=== PATIENT | female | born 1965 | race Caucasian/White ===

== ENCOUNTER 2022-07-22 15:27 | Outpatient (CLI) | payer BC, SELFPAY ==
--- NOTE | ~2022-07-22 | XR_ITS ---
XR lumbar spine min 4V DATE: 07/22/2022 16:03 INDICATION: Spondylosis without myelopathy or radiculopathy TECHNIQUE: Standing AP, lateral and flexion and extension lateral views COMPARISON: 07/22/2022 FINDINGS: Status post anterior, interbody and posterior surgical spinal fusion at L5-S1. There is moderate degenerative disc disease at L4-5 and mild degenerative disease at the remaining rubens mbar interspaces. No fracture or bone destruction is evident. Included lower thoracic and lower lumbar pedicles appear intact. No lumbar instability is noted on flexion or extension. The sacroiliac joints and pubic symphysis are intact. Status post cholecystectomy. IMPRESSION: Status post anterior, interbody and posterior spinal fusion at L5-S1 Mild to moderate degenerative disease Reviewed, dictated and finalized at location A. MINE CUTTING MACHINE OPERATOR IMPRESSION: Status post anterior, interbody and posterior spinal fusion at L5-S 1 Mild to moderate degenerative disease
--- NOTE | ~2022-07-22 | CT_ITS ---
EXAMINATION: CT lumbar spine wo con DATE: 07/22/2022 15:45 INDICATION: Lumbar spondylosis. TECHNIQUE: Computed tomography (CT) of the lumbar spine was performed without intravenous contrast. A utomated exposure control and iterative reconstruction technique were employed. The dose-length produ ct was 1268.33 mGy-cm. COMPARISON: Lumbar spine radiographs 07/22/2022 FINDINGS: There is a small sliding hiatal hernia. There is 6 degrees levocurvature of lumbar spine. T here is a transitional segment at lumbosacral junction that is designated L5. There is mild chronic a nterior wedging of T10 vertebral body. There are changes of anterior fusion procedure at L4-L5 with i nterbody device and anterior plate and screws. There are changes of posterior fusion procedure at L4- L5 with pedicle screws. There is mildly decreased disc height at L2-L3 and moderately decreased disc height at L3-L4. The following disc levels are specifically discussed: L1-L2: The disc is mildly bulging. There is mild bilateral facet joint osteoarthritis. There is mild bilateral neural foraminal stenosis. There is no central canal stenosis. L2-L3: The disc is bulging. There is moderate right and mild left facet joint osteoarthritis. There i s mild bilateral neural foraminal stenosis. There is mild central canal stenosis. L3-L4: The disc is bulging. There is severe bilateral facet joint osteoarthritis. There is moderate b ilateral neural foraminal stenosis. There is moderate central canal stenosis. L4-L5: There is mild bilateral facet joint hypertrophy. There is moderate bilateral neural foraminal stenosis. There is no central canal stenosis. There is posterior decompression. L5-S1: The disc does not extend beyond the endplate margin. There is mild left facet joint hypertroph y. There is mild left neural foraminal stenosis. There is no central canal stenosis. IMPRESSION: 1. Transitional segment at the lumbosacral junction that is designated L5. 2. Anterior and posterior fusion procedures at L4-L5. 3. Moderate lumbar spondylosis, worst at L3-L4. Reviewed, dictated and finalized at location A. COORDINATOR
== END 2022-07-22 15:28 | disposition home or self-care (01) ==
LOC: ANHIMG 15:30
PROVIDERS: PCP Internal Medicine; Visit Provider Neurological Surgery
DX: M47.816 Spondylosis without myelopathy or radiculopathy, lumbar region (principal); Z98.1 Arthrodesis status; M51.36 Other intervertebral disc degeneration, lumbar region
CPT/HCPCS: 72110; 72131

== ENCOUNTER 2022-10-22 11:49 | Outpatient (CLI) | payer BC, SELFPAY ==
--- NOTE | ~2022-10-22 | XR_ITS ---
XR lumbar spine 2-3V 10/22/2022 12:10 Indication: Lumbar fusion Procedure: 3 views lumbar spine Comparison: Lumbar spine series dated 07/22/2022 Findings: Interval placement of pedicle screws at L4-5. There are laminectomy changes at these levels . There are prior changes of anterior lumbar fusion and discectomy at L5-S1. There is a residual frac tured screw traversing the S1 segment on the right. Interval removal of posterior pedicle screws at L 5-S1. There is lateral bone graft mass at L4-5. There is mild disc narrowing at L4-5. No acute fractu re or traumatic malalignment. Visualized bowel gas pattern is nonobstructive. There are cholecystecto my clips. Impression: 1: No acute abnormality of the lumbar spine. 2: Interval posterior spinal fusion at L4-5 with removal of posterior pedicle screws at L5-S1. There is a residual screw in the S1 segment on the right. Residual anterior lumbosacral fusion at L5-S1 wit h discectomy. Reviewed, dictated and finalized at location L. OL ATHLETIC DIRECTOR Impression: 1: No acute abnormality of the lumbar spine. 2: Interval posterior spinal fusion at L4-5 with removal of posterior pedicle s crews at L5-S1. There is a residual screw in the S1 segment on the right. Resid ual anterior lumbosacral fusion at L5-S1 with discectomy.
== END 2022-10-22 11:50 | disposition home or self-care (01) ==
LOC: ANHIMG 11:51
PROVIDERS: PCP Internal Medicine; Visit Provider Nurse Practitioner Adult Health
DX: M54.50 Low back pain, unspecified (principal); Z98.1 Arthrodesis status
CPT/HCPCS: 72100